=== PATIENT | female | born 1960 | race Caucasian/White ===

== ENCOUNTER 2018-07-14 19:33 | Emergency (ER) | payer OTHER ==
[~2018-07-14] VITALS: Ht 162.6 cm; Wt 101.6 kg
[~2018-07-14 19:33] MED LIST: ASPIR 8181 MG PO; CARVEDILOL6.25 M1 PO; CLONIDINE HCL0.2 MG PO; GLU5 PO; GLYBURIDE5 MG PO; LOT1C TOP; METFORMIN HCL1000 MG PO
[2018-07-14 19:43] VITALS: Ht 162.6 cm; Wt 101.6 kg
[2018-07-14 22:09] VITALS: BP 155/90
== END 2018-07-14 22:09 | disposition home or self-care (01) ==
LOC: ED 19:33
DX: S63.612A Unspecified sprain of right middle finger, initial encounter (principal); I10 Essential (primary) hypertension; E11.9 Type 2 diabetes mellitus without complications; X58.XXXA Exposure to other specified factors, initial encounter; Y93.89 Activity, other specified; Y92.89 Other specified places as the place of occurrence of the external cause; Y99.8 Other external cause status
CPT/HCPCS: A4570; J1885